=== PATIENT | male | born 1980 | race African-American/Black ===

== ENCOUNTER 2019-07-27 10:11 | Emergency (ER) | payer SELFPAY ==
--- NOTE | 2019-07-27 10:47 | EDM.PDOC ---
ED HPI GENERAL MEDICAL PROBLEM - General Chief Complaint: Lower Extremity Injury/Pain Stated Complaint: RT KNEE PAIN Time Seen by Provider: 07/27/19 10:32 Source of Information: Reports: Patient, Family (spouse) History Limitations: Reports: No Limitations - History of Present Illness INITIAL COMMENTS - FREE TEXT/NARRATIVE: 39-year-old male presents to the ED with acute pain lateral aspect of his right knee. Patient states he twisted it just by walking at home on , July 24. He states about 3 weeks prior he had a similar event and it was just starting to feel markedly improved when it suddenly started to hurt and swell again. Currently is having to walk pegylated. He has no known chronic injury to the knee. Onset: Sudden Onset Date: 07/24/19 (Recurrent bout of pain lateral right knee with swelling of the knee. Similar event about 3 weeks ago which seemed to settle down after 10 days or so.) Duration: Day(s):, Constant, Getting Worse Location: Reports: Lower Extremity, Right (Right lateral knee pain.) Quality: Reports: Ache Severity: Moderate Improves with: Reports: Rest Worsens with: Reports: Other Context: Denies: Activity, Exercise (Weightbearing makes the pain much worse), Sick Contact, Trauma, Other Associated Symptoms: Denies: No Other Symptoms, Confusion, Chest Pain, Cough, cough w sputum, Diaphoresis, Fever/Chills, Headaches, Loss of Appetite, Malaise , Nausea/Vomiting, Rash, Shortness of Breath, Syncope 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 - Related Data Allergies Allergy/AdvReac Type Severity Reaction Status Date / Time No Known Allergies Allergy Verified 07/27/19 10:23 Home Meds: Home Meds Ibuprofen 800 mg PO Q8HR PRN 07/27/19 [History] oxyCODONE HCl/Acetaminophen [Percocet 5-325 mg Tablet] 1 - 2 each PO Q4H PRN # 15 tablet 07/27/19 [Rx] Past Medical History Musculoskeletal History: Reports: Other (See Below) (Intermittent problems with right lateral knee pain.) Social & Family History - Tobacco Use Smoking Status *Q: Never Smoker Second Hand Smoke Exposure: No - Caffeine Use Caffeine Use: Reports: None - Recreational Drug Use Recreational Drug Use: No - Living Situation & Occupation Living situation: Reports: Occupation: Employed Review of Systems - Review of Systems Review Of Systems: See Below Constitutional: Denies: Chills, Diaphoresis, Fever, Weakness, Other Eyes: Denies: No Symptoms, Blindness, Blurred Vision, Drainage, Decreased Acuity Musculoskeletal: Reports: Other (Examination was limited to his right lower extremity. He does have a effusion of the knee joint which I would consider moderate likely 30-40 mils. Pain slightly along the lateral joint. Cruciate ligaments are intact. Stressing the lateral collateral ligament did not reveal any laxity. Mildly positive Ashanti's sign on stressing the lateral meniscus.) Skin: Reports: No Symptoms Neurological: Reports: No Symptoms Psychiatric: Reports: No Symptoms ED EXAM, GENERAL - Physical Exam Exam: See Below Exam Limited By: No Limitations General Appearance: Alert, WD/WN, No Apparent Distress, Other (Vital signs show blood pressure elevation at 1 [id number]. Patient has no history of hypertension.) Eye Exam: Bilateral Eye: Normal Inspection Extremities: Other (Examination was limited to his right lower extremity. He does have an effusion of the right knee which I would state is moderate 30-40 mils suspect. His crucial ligaments are intact. He has pain with attempt to fully flex the knee. Stressing the lateral ) Neurological: Alert, Oriented, CN II-XII Intact, Normal Cognition. No: Normal Gait (Walking patent leg in.) Course - Vital Signs Last Recorded V/S: Last Vital Signs Temp 36.1 C 07/27/19 10:15 Pulse 74 07/27/19 10:15 Resp 18 07/27/19 10:15 BP 167/91 H 07/27/19 10:15 Pulse Ox 99 07/27/19 10:15 - Orders/Labs/Meds Orders: Active Orders 24 hr Category Date Time Status Knee 3V Rt [CR] Stat Exams 07/27/19 10:41 Taken - Radiology Interpretation Free Text/Narrative:: 39-year-old male presents to the ED with painful right lateral knee for the last 3 days. He contacted despite twisting it at home about 3 days ago. Similar occurrence about 3 and half weeks ago and seemed to get better over time. Examination reveals a mild to moderate effusion of the right knee. Stressing the lateral ligaments did not show any laxity. He has a mildly positive Ashanti 's sign on stressing the lateral meniscus. Plan x-ray of the need to be done. - Re-Assessments/Exams Free Text/Narrative Re-Assessment/Exam: 07/27/19 11:48 3 views of the right knee did not show any abnormalities. There is perhaps an old loose body lateral aspect inferior to the patella but nothing in the true joint of the knee. Clinically he has a torn lateral meniscus. Have him follow-up with Dr. Agrawal in orthopedic surgery clinic. In the meantime will be placed in a short knee immobilizer. 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 Departure - Departure Time of Disposition: 12:02 Disposition: Home, Self-Care 01 Condition: Fair Clinical Impression: Internal derangement of knee involving lateral meniscus Knee pain, right Qualifiers: Chronicity: acute Qualified Code(s): M25.561 - Pain in right knee - Discharge Information *PRESCRIPTION DRUG MONITORING PROGRAM REVIEWED*: Not Applicable *COPY OF PRESCRIPTION DRUG MONITORING REPORT IN PATIENT CARLIE: Not Applicable Prescriptions: oxyCODONE HCl/Acetaminophen [Percocet 5-325 mg Tablet] 1 - 2 each PO Q4H PRN # 15 tablet PRN Reason: pain relief. Instructions: Knee Pain, Adult, Meniscus Tear, Phase I Rehab-SportsMed Referrals: PCP,None [Primary Care Provider] - Forms: ED Department Discharge, ED Return to Work/School Form Additional Instructions: Evaluation the emergency room today in regards to acute onset of right knee pain 4 days. Similar event 3-4 weeks ago which seemed to slowly get better. Pain involving the lateral compartment of the right knee. Exam suggests that you have a partial tear of your lateral meniscus or cartilage of the knee. X- ray of the knee is normal. Follow-up with orthopedic surgeon Dr. Agrawal . Please call [phone] to arrange an appointment tomorrow. He will then determine if the MRI of the knee is required or whether he will proceed with arthroscopy of the knee to repair the suspect torn cartilage. Continue Motrin 600 mg every 6 hours as needed for pain relief during the day. May use pain medication Percocet tabs 5/3/25 milligrams usually 2 tablets at bedtime to help sleep if needed. Suggest knee immobilizer on during the day and may take off at bedtime. This will support the lateral ligament structure. - My Orders Last 24 Hours: My Active Orders 07/27/19 10:41 Knee 3V Rt [CR] Stat - Assessment/Plan Last 24 Hours: My Active Orders 07/27/19 10:41 Knee 3V Rt [CR] Stat
--- NOTE | 2019-07-28 09:28 | CR ---
Right knee: AP, lateral and sunrise patellar views of the right knee were obtained. Joint effusion is seen. Osteophytes are noted off the lateral and medial joint compartment as well as minimal osteophyte off the patella. Small well-corticated calcification is noted off the lateral patellofemoral joint on the sunrise view which is old. No acute fracture or other bony abnormality is seen. Impression: 1. Mild degenerative change and joint effusion. Diagnostic code #3
== END 2019-07-27 12:54 | disposition home or self-care (01) ==
LOC: JD.ED 10:11
DX: S83.281A Other tear of lateral meniscus, current injury, right knee, initial encounter (principal); X50.1XXA Overexertion from prolonged static or awkward postures, initial encounter; Y93.01 Activity, walking, marching and hiking; Y92.009 Unspecified place in unspecified non-institutional (private) residence as the place of occurrence of the external cause
CPT/HCPCS: 73562-26-RT; 73562-RT; 99283; 99283-25